=== PATIENT | female | born 1980 | race Caucasian/White ===

== ENCOUNTER → 2017-02-14 | Outpatient (CLI) | payer OTHER ==
[~2017-02-14] MED LIST: AZAT50TA17 PO; CIPR-255 PO; HYDR-3714 PO; NITR1CAP16 PO; PHEN-775 PO
--- NOTE | 2017-02-14 13:18 | DIAGNOSTIC IMAGING REPORT ---
CHEST 2 VIEWS ROUTINE CLINICAL HISTORY: N20.1 dyspnea COMPARISON STUDY: No previous studies for comparison. FINDINGS: The bones soft tissues and hemidiaphragms are normal. The cardiomediastinal silhouette is normal. The lungs are clear. The pulmonary vasculature is normal. IMPRESSION: Negative chest. The above report was generated using voice recognition software. It may contain grammatical, syntax or spelling errors. Electronically signed by: Manoj Lange M.D. 02/14/2017 1:17 PM Dictated Date/Time: 02/14/2017 1:17 PM
== END | disposition home or self-care (01) ==
LOC: C.RAD 12:55
PROVIDERS: ATTEND Urology
DX: N20.1 Calculus of ureter (principal)

== ENCOUNTER → 2017-02-14 | Outpatient (CLI) | payer OTHER ==
--- NOTE | 2017-02-14 11:25 | DIAGNOSTIC IMAGING REPORT ---
KUB CLINICAL HISTORY: 36 years-old Female presenting with right renal stones. TECHNIQUE: Single supine view of the abdomen was obtained. COMPARISON: None. FINDINGS: Cholecystectomy clips noted. No convincing calcification projects over the renal shadows or along the expected courses of the ureters. Radiodense material in a tubular distribution within the right pelvis of uncertain etiology, possibly postprocedural. Left hemipelvis tubal ligation clip noted. Nonobstructive bowel gas pattern. Osseous structures intact. IMPRESSION: 1. No radiographically evident renal or ureteral calculus. Electronically signed by: Rosales Fernandez M.D. 02/14/2017 11:24 AM Dictated Date/Time: 02/14/2017 11:22 AM
== END | disposition home or self-care (01) ==
LOC: C.RAD 10:46
PROVIDERS: ATTEND Urology
DX: N13.2 Hydronephrosis with renal and ureteral calculous obstruction (principal)

== ENCOUNTER → 2017-02-14 | Outpatient (CLI) | payer OTHER | END | disposition home or self-care (01) | LOC: C.LABSPEC 17:19 | PROVIDERS: ATTEND Urology | DX: N20.1 Calculus of ureter (principal) ==

== ENCOUNTER → 2017-02-16 | Day surgery (SDC) | payer OTHER ==
[~2017-02-16] VITALS: Ht 165.1 cm; Wt 101.0 kg
[~2017-02-16] MED LIST changes: +ATROPINE SULFATE 0.1 MG/ML 5ML SYR IV PRN; +CIPROFLOXACIN / D5W 400 MG IV SCH; +CONRAY 30% 150ML BOTTLE ONE; +EpHEDrine SULFATE INJ 50 MG/ML AMP IV PRN; +FENTANYL CITRATE INJ 50 MCG/1 ML 2 ML VIAL ONE; +LACTATED RINGER'S 1000ML 1,000 ML IV SCH; +LIDOCAINE HCL 2% 2 ML VIAL (20MG/ML) ONE; +MIDAZOLAM HCL 1 MG/ML 2ML VIAL ONE; +NURSING VERBAL MED ORDER ONE; +ONDANSETRON INJ 2 MG/ML 2 ML VIAL IV PRN; +ONDANSETRON INJ 2 MG/ML 2 ML VIAL ONE; +OXYCODONE/ACETAMINOPHEN 5-325 TAB PO PRN; +PHENAZOPYRIDINE HCL 200 MG TAB PO PRN; +PROPOFOL IV EMULSION 10 MG/ML 20 ML VIAL IV ONE
[2017-02-16 05:30] VITALS: BP 105/71; PULSE 72; TEMP 37; O2SAT 95; Ht 165.1 cm; Wt 101.0 kg
--- NOTE | 2017-02-16 07:00 | History & Physical Bridge Note ---
H&P Re-Evaluation Bridge Note: I have examined the patient, reviewed the History & Physical and in the interval since the performance of the History & Physical I have noted the following changes of clinical significance: No changes noted
--- NOTE | 2017-02-16 07:59 | Discharge Instructions ---
Discharge Instructions Date of Service Feb 16, 2017. Admission Reason for Admission: Right Ureteral Stone Discharge Discharge Diagnosis / Problem: R ureteral stone s/p R uscope, laser litho, stent Discharge Goals Goal(s): Decrease discomfort, Improve disease control, Diagnostic testing, Therapeutic intervention Activity Recommendations Activity Limitations: as noted below Lifting Limitations: no more than 25 pounds, gradually increase as tolerated Exercise/Sports Limitations: rest today, gradually increase as tolerated May Resume Sexual Activity: when tolerated Shower/Bathe: no limitations Driving or Machine Use: resume 1 day after discharge (if not taking pain meds) . Instructions / Follow-Up Instructions / Follow-Up In office as scheduled for removal of stent Discharge Diet Recommended Diet: Regular Diet (good fluid intake) Procedures Procedures Performed: Cystoscopy, right retrograde pyelography, right semi rigid ureteroscopy with laser lithotripsy; basket stone extraction, right ureteral stent placement. Pending Studies Studies pending at discharge: yes List of pending studies: Stone analysis Medical Emergencies . Who to Call and When: Medical Emergencies: If at any time you feel your situation is an emergency, please call 911 immediately. . Non-Emergent Contact Non-Emergency issues call your: Urologist Call Non-Emergent contact if: you have a fever, temperature is above 101, your pain is not controlled, your pain is worsening, your pain is unusual for you, your pain is concerning you, you have any medication questions . . "Provider Documentation" section prepared by Erasto Herron. . VTE Core Measure Inpt VTE Proph given/why not?: SCD's [place] Drug Monitoring Program Search Results: patient reviewed within database, see additional documentation (4 Rx for narcotics this year, last 4 days ago)
--- NOTE | 2017-02-16 08:00 | DIAGNOSTIC IMAGING REPORT ---
RETROGRADE INCLUDES KUB HISTORY: RIGHT LASER AND STENT FLUOROSCOPY TIME: 45 seconds. FINDINGS: 7 fluoroscopic spot images were submitted for review. There is retrograde opacification of the right ureter followed by placement of a right ureteral stent. Only the proximal portion of the stent is identified and is located at the right renal pelvis. IMPRESSION: Fluoroscopy provided for right ureteral stent placement. Electronically signed by: Chidi Azevedo M.D. 02/16/2017 7:58 AM Dictated Date/Time: 02/16/2017 7:57 AM
--- NOTE | 2017-02-16 08:02 | [facility] Post Operative Brief Note ---
Immediate Operative Summary Operative Date Feb 16, 2017. Pre-Operative Diagnosis Right ureteral stone with intractable renal colic Post-Operative Diagnosis Same as preoperative diagnosis Procedure(s) Performed Cystoscopy, right retrograde pyelography, right semi rigid ureteroscopy with laser lithotripsy; basket stone extraction, right ureteral stent placement. Surgeon Dr. Herron District Administrator Surgeon(s) None Estimated Blood Loss 0 Findings Stone at level of vessels fragmented and removed with no residual, mild to mod ureteral edema, good stent position after completion. Specimens A. Right ureteral stone fragments sent for chemical analysis Drains 6 fr 24 cm R ureteral loop stent Anesthesia [facility] Complication(s) None Disposition Recovery Room / PACU
[2017-02-16] MEDS: FENTANYL CITRATE INJ 50 MCG/1 ML 2 ML VIAL IV PRN ×4 (08:04→08:20)
--- NOTE | 2017-02-16 08:06 | [facility] Operative Report ---
Operative Report Operative Date Feb 16, 2017. Pre-Operative Diagnosis Right ureteral stone with intractable renal colic Post-Operative Diagnosis Same as preoperative diagnosis, radiolucent stone Procedure(s) Performed Cystoscopy, right retrograde pyelography, right semi rigid ureteroscopy with laser lithotripsy; basket stone extraction, right ureteral stent placement. Surgeon Dr. Herron Professor Sculpture Surgeon(s) None Estimated Blood Loss 0 Findings Stone at level of vessels fragmented and removed with no residual, mild to mod ureteral edema, good stent position after completion. Specimens A. Right ureteral stone fragments sent for chemical analysis Drains 6 fr 24 cm R ureteral loop stent Anesthesia [facility]ALMA Complication(s) None Disposition Recovery Room / PACU Indications 36-year-old female who had seen a couple of days ago with a right radiolucent ureteral stone on KUB who is here today for endoscopic management of her disease. Intravenous ciprofloxacin was provided for antibiotic coverage and SCDs used for DVT prophylaxis. Please see H&P for further details Description of Procedure Patient was properly identified and brought to the operative suite after identification of appropriate consent of the chart. General anesthesia with laryngeal mask was initiated and patient was prepped and draped in the standard fashion for this procedure. Full timeout procedure was followed. 22 Setswana rigid cystoscope was passed into the bladder under direct visualization bladder was surveyed in its entirety including 30 and 70 lenses demonstrating no intravesical masses, papillary lesions, tumors or stones. Ureteral orifices were noted to be in the normal anatomic location bilaterally. Right-sided ureteral orifice was cannulated using an open-ended catheter and gentle retrograde pyelography was performed. This demonstrated normal ureter up to the level of the vessels with a filling defect being present and some tightening of the ureter. Mild proximal hydroureteronephrosis was present. Sensor tip wire was advanced up to the level of the right renal pelvis and kept until the end of the case as a safety wire. A short semirigid ureteroscope was advanced into the ureter after draining the bladder over a second working sensor wire. This was easily able to be advanced up to the level of the stone which was then fragmented using a 270 laser fiber. Some fragments were grasped using a 0 tip basket and extracted into the bladder where they were retrieved at the end of the case and sent for chemical analysis. Semirigid ureteroscope was advanced up to the level of the proximal ureter and complete X ureteroscopy was performed demonstrating no residual stones or evidence of any ureteral injuries or tears. Edema at the site of the stone impaction was appreciated, mild to moderate in severity. After exit ureteroscopy was complete the cystoscope was backloaded over the safety wire and a 6 Setswana 24 cm loop stents was advanced on the right-hand side. Full coil was appreciated at the level of the renal pelvis on the right-hand side and redundant loops were present within the bladder. Bladder was drained of stone in urine and cystoscope was removed. Anesthesia was reversed and patient was transferred to the recovery room in stable condition. Follow-up care: Patient will be discharged home with a prescription for ciprofloxacin and pyridium. She has received recent narcotic pain medication from another physician. Outpatient appointment for cystoscopy and stent removal was confirmed. Patient is instructed to contact our service should she note any fevers chills nausea vomiting or other significant difficulties in the postoperative period. Care was discussed the patient's family present here today. I attest to the content of the Intraoperative Record and any orders documented therein. Any exceptions are noted below.
--- NOTE | 2017-02-16 08:34 | Anesthesiology Progress Note ---
Anesthesia Post Op Note Date & Time Feb 16, 2017 at 08:34 Vital Signs Pain Intensity: 3 Vital Signs Past 12 Hours Date Time Temp Pulse Resp B/P (MAP) Pulse Ox O2 Delivery O2 Flow Rate FiO2 02/16/17 08:25 83 12 102/62 96 Room Air 02/16/17 08:15 78 12 104/62 100 Nasal Cannula 2 02/16/17 08:05 90 12 107/70 100 Nasal Cannula 2 02/16/17 07:56 36.1 98 12 108/72 100 Nasal Cannula 2 02/16/17 05:30 37 72 16 105/71 (82) 95 Room Air Notes Mental Status: alert / awake / arousable, participated in evaluation Pt Amnestic to Procedure: Yes Nausea / Vomiting: adequately controlled Pain: adequately controlled Airway Patency, RR, SpO2: stable & adequate BP & HR: stable & adequate Hydration State: stable & adequate Anesthetic Complications: no major complications apparent
[2017-02-16 08:45] VITALS: BP 107/59; PULSE 81; TEMP 36.6; O2SAT 97
[2017-02-16 09:15] VITALS: BP 110/65; PULSE 85; O2SAT 93
[2017-02-16 09:40] VITALS: BP 113/73; PULSE 83; TEMP 36.9; O2SAT 96
== END | disposition home or self-care (01) ==
LOC: C.ACU 05:00
PROVIDERS: ATTEND Urology
DX: N20.1 Calculus of ureter (principal); N23 Unspecified renal colic; N13.39 Other hydronephrosis

== ENCOUNTER → 2017-02-27 | Outpatient (CLI) | payer OTHER ==
[~2017-02-27] MED LIST changes: -ATROPINE SULFATE 0.1 MG/ML 5ML SYR IV PRN; -CIPROFLOXACIN / D5W 400 MG IV SCH; -CONRAY 30% 150ML BOTTLE ONE; -EpHEDrine SULFATE INJ 50 MG/ML AMP IV PRN; -FENTANYL CITRATE INJ 50 MCG/1 ML 2 ML VIAL ONE; -LACTATED RINGER'S 1000ML 1,000 ML IV SCH; -LIDOCAINE HCL 2% 2 ML VIAL (20MG/ML) ONE; -MIDAZOLAM HCL 1 MG/ML 2ML VIAL ONE; -NURSING VERBAL MED ORDER ONE; -ONDANSETRON INJ 2 MG/ML 2 ML VIAL IV PRN; -ONDANSETRON INJ 2 MG/ML 2 ML VIAL ONE; -OXYCODONE/ACETAMINOPHEN 5-325 TAB PO PRN; -PHENAZOPYRIDINE HCL 200 MG TAB PO PRN; -PROPOFOL IV EMULSION 10 MG/ML 20 ML VIAL IV ONE
--- NOTE | 2017-02-27 13:43 | DIAGNOSTIC IMAGING REPORT ---
KUB CLINICAL HISTORY: 36 years-old Female presenting with right ureteral calculus. TECHNIQUE: Single supine view of the abdomen was obtained. COMPARISON: 02/14/2017. FINDINGS: Interval placement of a right ureteral stent. Surgical clip again projects over the pelvis. Cholecystectomy clips. Previously noted tubular radiodensity in the region of the distal right ureter has resolved. No radiodensity along the course of the right ureter. Previously seen calculus in the distal right ureter on CT from 02/07/2017 is notably not present. No calcifications project over the renal shadows to suggest nephrolithiasis. Lung bases clear. Degenerative changes of the pubic symphysis. IMPRESSION: 1. Interval placement of a right ureteral stent. Previously noted calculus in the distal right ureter on outside CT from 02/07/2017 is not visualized, indicating passage. Electronically signed by: Rosales Fernandez M.D. 02/27/2017 1:42 PM Dictated Date/Time: 02/27/2017 1:39 PM
== END | disposition home or self-care (01) ==
LOC: C.RAD 13:20
PROVIDERS: ATTEND Urology
DX: N20.1 Calculus of ureter (principal)

== ENCOUNTER → 2017-02-28 | Day surgery (SDC) | payer OTHER ==
[~2017-02-28] VITALS: Ht 165.1 cm; Wt 101.0 kg
[~2017-02-28] MED LIST changes: +ATROPINE SULFATE 0.1 MG/ML 5ML SYR IV PRN; +BELLADONNA/OPIUM SUPP 60 MG SUPP PR ONE; +CIPROFLOXACIN / D5W 400 MG IV SCH; +CONRAY 30% 150ML BOTTLE ONE; +EpHEDrine SULFATE INJ 50 MG/ML AMP IV PRN; +FENTANYL CITRATE INJ 50 MCG/1 ML 2 ML VIAL IV PRN; +FENTANYL CITRATE INJ 50 MCG/1 ML 2 ML VIAL ONE; +GENTAMICIN INJ 80 MG in DEXTROSE 5% 100ML 100 ML IV SCH; +MIDAZOLAM HCL 1 MG/ML 2ML VIAL ONE; +ONDANSETRON INJ 2 MG/ML 2 ML VIAL IV PRN; +OXYCODONE/ACETAMINOPHEN 5-325 TAB ONE; +OXYCODONE/ACETAMINOPHEN 5-325 TAB PO PRN; -PHEN-775 PO; +PROPOFOL IV EMULSION 10 MG/ML 20 ML VIAL IV ONE
[2017-02-28 05:38] VITALS: BP 110/67; PULSE 67; TEMP 36.5; O2SAT 96; Ht 165.1 cm; Wt 101.0 kg
--- NOTE | 2017-02-28 07:18 | Discharge Instructions ---
Discharge Instructions Date of Service Feb 28, 2017. Admission Reason for Admission: Right Retained Stent Discharge Discharge Diagnosis / Problem: R retained stent s/p ureteroscopy and stent removal Discharge Goals Goal(s): Decrease discomfort, Therapeutic intervention Activity Recommendations Activity Limitations: as noted below Lifting Limitations: no more than 25 pounds, gradually increase as tolerated Exercise/Sports Limitations: rest today, gradually increase as tolerated May Resume Sexual Activity: when tolerated Shower/Bathe: no limitations Driving or Machine Use: resume 1 day after discharge . Discharge Diet Recommended Diet: Regular Diet (good fluid intake) Procedures Procedures Performed: Cystoscopy, R ureteroscopy and stent removal Pending Studies Studies pending at discharge: no Medical Emergencies . Who to Call and When: Medical Emergencies: If at any time you feel your situation is an emergency, please call 911 immediately. . Non-Emergent Contact Non-Emergency issues call your: Urologist Call Non-Emergent contact if: you have a fever, temperature is above 101, your pain is not controlled, your pain is worsening, your pain is unusual for you, your pain is concerning you, you have any medication questions . . "Provider Documentation" section prepared by Erasto Herron. . VTE Core Measure Inpt VTE Proph given/why not?: SCD's [place] Drug Monitoring Program Search Results: patient reviewed within database, see additional documentation (numerous recent Rx, last by myself yesterday for pain after intervention)
--- NOTE | 2017-02-28 08:03 | [facility] Operative Report ---
Operative Report Operative Date Feb 28, 2017. Pre-Operative Diagnosis Retained right ureteral stent Post-Operative Diagnosis Same Procedure(s) Performed Cystoscopy, right semirigid ureteroscopy and stent removal Surgeon Erasto Herron Integrated Marketing Specialist Surgeon(s) none Estimated Blood Loss none Findings Stent just proximal to right ureteral orifice grasped with 3-prong grasper via semirigid ureteroscope and extracted without difficulty. Specimens None Drains none Anesthesia [facility] Complication(s) None Disposition Recovery Room / PACU Indications 36-year-old female who is postop right ureteroscopy for stone with a retained stent unable to be removed in the office due to proximal migration. Intravenous ciprofloxacin provided for about a coverage and SCDs used for DVT prophylaxis. Please see office note and H&P for further details. Description of Procedure Patient was properly identified and brought to the operative suite after identification of appropriate consent in the chart. Monitored anesthesia care with sedation was initiated and patient was prepped and draped in standard fashion for this procedure. Full timeout procedure was followed. 22 Maori rigid cystoscope was passed into the bladder under direct visualization and edema in the region of the right ureteral orifice with some mild irritation was appreciated. No other worrisome intravesical findings were noted. Stent was visualized just within the right ureteral orifice and was able to be clearly seen on fluoroscopy. However attempts at grasping the stent using a stent grasper via the ureteral orifice were unsuccessful. To avoid trauma semirigid ureteroscope was taken and passed into the distal ureter without difficulties or resistance. Stent was visualized, grasped with a three-pronged grasper and removed without resistance or trouble. Seen the relative lack of edema at the ureteral orifice allowing for easy passage of the ureteroscope decision was made not to replace the stent. Anesthesia was reversed patient was transferred to the recovery room in stable condition without difficulties. Belladonna and opium suppository was provided postoperatively for further analgesia. We'll see the patient in 1 month with an IVP to ensure good healing after her surgeries. I attest to the content of the Intraoperative Record and any orders documented therein. Any exceptions are noted below.
[2017-02-28 08:05] VITALS: BP 98/53; PULSE 76; TEMP 36.5; O2SAT 97
--- NOTE | 2017-02-28 08:32 | DIAGNOSTIC IMAGING REPORT ---
FLUOROSCOPIC IMAGES FROM RIGHT RETROGRADE EXAM CLINICAL HISTORY: Right sided stent removal. COMPARISON STUDY: KUB February 27, 2017. Fluoroscopy time: 5.1 seconds. FINDINGS: 2 fluoroscopic images demonstrate removal of the right ureteral stent. A linear radiodensity projecting over the pelvis reflects a sponge on the patient. IMPRESSION: Fluoroscopic images demonstrating removal of right ureteral stent. Electronically signed by: Micah Segal M.D. 02/28/2017 8:31 AM Dictated Date/Time: 02/28/2017 8:24 AM
[2017-02-28 08:35] VITALS: BP 95/53; PULSE 74; O2SAT 97
--- NOTE | 2017-02-28 08:57 | Anesthesiology Progress Note ---
Anesthesia Post Op Note Date & Time Feb 28, 2017 at 08:56 Vital Signs Pain Intensity: 4 Vital Signs Past 12 Hours Date Time Temp Pulse Resp B/P (MAP) Pulse Ox O2 Delivery O2 Flow Rate FiO2 02/28/17 08:05 36.5 76 16 98/53 97 Room Air 02/28/17 05:38 36.5 67 18 110/67 (81) 96 Room Air Notes Mental Status: alert / awake / arousable, participated in evaluation Pt Amnestic to Procedure: Yes Nausea / Vomiting: adequately controlled Pain: adequately controlled Airway Patency, RR, SpO2: stable & adequate BP & HR: stable & adequate Hydration State: stable & adequate Anesthetic Complications: no major complications apparent
[2017-02-28 09:05] VITALS: BP 96/53; PULSE 72; TEMP 37; O2SAT 98
== END | disposition home or self-care (01) ==
LOC: C.OR 05:17
PROVIDERS: ATTEND Urology
DX: T83.84XA Pain due to genitourinary prosthetic devices, implants and grafts, initial encounter (principal); Z79.899 Other long term (current) drug therapy; X58.XXXA Exposure to other specified factors, initial encounter